=== PATIENT | female | born 1995 | race Two or more races ===

== ENCOUNTER 2018-07-01 19:27 | Inpatient (IN) | payer OTHER ==
[~2018-07-01] VITALS: Ht 165.1 cm; Wt 45.4 kg
[~2018-07-01 19:27] MED LIST: ACETAMINOPHEN 325MG TABLET ONE
[2018-07-01] MEDS ORDERED: ONDANSETRON HCL 4MG/2ML INJ IV STA (20:34)
[2018-07-01] MEDS ORDERED: ACETAMINOPHEN 325MG TABLET PO STA (20:34)
[2018-07-01] MEDS ORDERED: MORPHINE SULFATE 4 MG/ML CPJ (NOT FOR IM USE) IV STA (20:34)
[2018-07-01] MEDS ORDERED: SODIUM CHLORIDE 0.9% 1000ML BAG (SEPSIS BOLUS) IV ONE (20:45)
[2018-07-01 21:39] LABS: CLARITY URINE CLEAR (CLEAR); COLOR URINE YELLOW (YELLOW); KETONES URINE 1+ (NEGATIVE); LEUKOCYTE ESTERASE URINE NEGATIVE (NEGATIVE); NITRITE URINE NEGATIVE (NEGATIVE); OCCULT BLOOD URINE NEGATIVE (NEGATIVE); PROTEIN URINE NEGATIVE (NEGATIVE); SPECIFIC GRAVITY URINE 1.013 (1.005-1.030); UROBILINOGEN URINE 0.2 E.U./dL (0.2-1.0)
[2018-07-01 21:41] LABS: CHLORIDE 102 mEq/L (98-107); INR 1.1; PROTHROMBIN TIME 11.4 sec (9.1-11.1)
[2018-07-01 21:42] LABS: HEMATOCRIT. 38.4 % (36.0-48.0); MEAN CORPUSCULAR HEMOGLOBIN 29.5 pg (28.0-32.0); MEAN CORPUSCULAR VOLUME 87.4 fL (81.0-99.0); MEAN PLATELET VOLUME 8.3 fl (7.4-10.4); PLATELET 381 x1000/uL (130-400); RED BLOOD CELL COUNT 4.39 mill/uL (4.2-5.4); RED CELL DISTRIBUTION WIDTH 13.8 % (11.6-14.6)
[2018-07-01 21:44] LABS: HCG SCREEN NEGATIVE
[2018-07-01 21:47] LABS: ETHANOL BLOOD < 10 mg/dL
[2018-07-01 21:58] LABS: *AMPHETAMINES SCREEN URINE NEGATIVE (NEGATIVE); *BARBITURATES SCREEN URINE NEGATIVE (NEGATIVE); *BENZODIAZEPINES SCREEN URINE NEGATIVE (NEGATIVE); *COCAINE SCREEN URINE NEGATIVE (NEGATIVE); METHADONE URINE SCREEN NEGATIVE (NEGATIVE); OPIATES URINE SCREEN NEGATIVE (NEGATIVE)
[2018-07-01 21:59] LABS: CANNABINOID URINE SCREEN PRESUMTIVE POSITIVE (NEGATIVE); PHENCYCLIDINE URINE SCREEN NEGATIVE (NEGATIVE)
[2018-07-01] MEDS ORDERED: LEVOFLOXACIN 750MG PREMIX 150 ML IV ONE (22:15)
[2018-07-01] MEDS ORDERED: VANCOMYCIN 1 G PREMIX 200 ML IV ONE (22:15)
[2018-07-01 22:21] LABS: PLATELET ESTIMATE NORMAL
[2018-07-01] MEDS ORDERED: IOHEXOL-300 100 ML BOTTLE ONE (22:53)
[2018-07-01] MEDS ORDERED: MAGNESIUM/ALUMINUM HYDROXIDE/SIMETHICONE 30ML UDC PO PRN (23:00)
[2018-07-01] MEDS ORDERED: ZOLPIDEM TARTRATE 5MG TABLET PO PRN (23:00)
[2018-07-01] MEDS ORDERED: AZITHROMYCIN 500 MG in DEXT 5% WATER 250 ML IV SCH (23:00)
[2018-07-01] MEDS ORDERED: ONDANSETRON HCL 4MG/2ML INJ IV PRN (23:00)
[2018-07-01] MEDS ORDERED: ACETAMINOPHEN 325MG TABLET PO PRN (23:00)
[2018-07-01] MEDS ORDERED: GUAIFENESIN 200MG/10ML SUGAR FREE UDC PO PRN (23:00)
[2018-07-01] MEDS ORDERED: IPRATROPIUM/ALBUTEROL 0.5-3(2.5)MG/3ML NEB INH PRN (23:00)
[2018-07-01] MEDS ORDERED: CLONIDINE 0.1MG TABLET PO PRN (23:00)
[2018-07-01] MEDS ORDERED: DOCUSATE SODIUM 100MG CAPSULE PO PRN (23:00)
[2018-07-02] MEDS ORDERED: POTASSIUM CHLORIDE 20MEQ TABLET SR PO ONE (00:15)
[2018-07-02] MEDS: KETOROLAC 15MG/ML VIAL IV PRN ×3 (02:09→20:28)
[2018-07-02] MEDS: SODIUM CHLORIDE 0.9% 1,000 ML IV SCH ×3 (03:30→23:30)
[2018-07-02] MEDS ORDERED: GUAIFENESIN/DM 600MG/30MG ER TAB 12HR PO NR (03:30)
[2018-07-02] MEDS ORDERED: AZITHROMYCIN 500 MG in DEXT 5% WATER 250 ML IV SCH ×2 (03:30→15:00)
[2018-07-02] MEDS: LORAZEPAM 0.5MG TABLET PO PRN ×2 (06:53→18:00)
[2018-07-02 12:00] VITALS: BP 125/59
[2018-07-02] MEDS: GUAIFENESIN/DM 600MG/30MG ER TAB 12HR PO SCH ×2 (13:30→20:32)
[2018-07-02] MEDS: ASCORBIC ACID 500 MG TABLET PO SCH ×2 (13:30→20:26)
[2018-07-02] MEDS: FAMOTIDINE 20MG TABLET PO SCH ×2 (13:30→20:26)
[2018-07-02] MEDS: TRAMADOL 50MG TABLET PO PRN ×2 (13:55→21:49)
[2018-07-02] MEDS ORDERED: CEFTRIAXONE 1,000 MG in DEXTROSE 5% WATER 50 ML IV SCH (15:00)
[2018-07-02 16:26] VITALS: BP 97/50
[2018-07-02] MEDS ORDERED: CALC-1042 PO (17:38)
[2018-07-02] MEDS ORDERED: OXYC10TA58 MT (17:56)
[2018-07-02 20:00] VITALS: BP 130/85
[2018-07-02 20:46] LABS: MEAN CORPUSCULAR VOLUME 87.8 fL (81.0-99.0); MEAN PLATELET VOLUME 8.2 fl (7.4-10.4); PLATELET 330 x1000/uL (130-400); RED BLOOD CELL COUNT 4.33 mill/uL (4.2-5.4)
[2018-07-02 20:59] LABS: CHLORIDE 105 mEq/L (98-107)
[2018-07-02 21:38] LABS: PLATELET ESTIMATE NORMAL
[2018-07-02] MEDS ORDERED: POTASSIUM CHLORIDE 20MEQ TABLET SR PO NR (22:15)
[2018-07-03] VITALS: BP 103/61
[2018-07-03] MEDS: LORAZEPAM 0.5MG TABLET PO PRN (02:35)
[2018-07-03] MEDS: KETOROLAC 15MG/ML VIAL IV PRN ×2 (02:36→08:31)
[2018-07-03 08:00] VITALS: BP 122/89
[2018-07-03] MEDS: FAMOTIDINE 20MG TABLET PO SCH (08:31)
[2018-07-03] MEDS: GUAIFENESIN/DM 600MG/30MG ER TAB 12HR PO SCH (08:31)
[2018-07-03] MEDS: ASCORBIC ACID 500 MG TABLET PO SCH (08:31)
[2018-07-03 10:28] VITALS: BP 122/84
== END 2018-07-03 11:44 | disposition home or self-care (01) | DRG 641 ==
LOC: ER 19:27 → 6WST 22:29 → EDBEDREQ 22:40 → EDBEDREQTM 22:40 → ENRESERV 07-02 07:08
PROVIDERS: ADMIT Internal Medicine; ATTEND Internal Medicine
DX: E87.6 Hypokalemia (principal); R65.10 Systemic inflammatory response syndrome (SIRS) of non-infectious origin without acute organ dysfunction; Z94.81 Bone marrow transplant status; F12.10 Cannabis abuse, uncomplicated; Z96.642 Presence of left artificial hip joint; Z76.5 Malingerer [conscious simulation]; Z71.51 Drug abuse counseling and surveillance of drug abuser; Z90.49 Acquired absence of other specified parts of digestive tract
CPT/HCPCS: 36415; 71045; 74177; 80048; 80305; 83036; 83605; 84145; 84484; 84703; 87804; 93005; 96372; 99285; C1893; J0456; J0696; J1885; J1956; J2270; J2405; J3370; J7030; J7060; Q9967